=== PATIENT | female | born 1985 | race Caucasian/White ===

== ENCOUNTER 2018-07-30 17:20 | Inpatient (IN) | payer BC ==
[~2018-07-30] VITALS: Ht 154.9 cm; Wt 70.7 kg
[~2018-07-30 17:20] MED LIST: NOCURR
[2018-07-30 19:28] LABS: BASOPHILS % (AUTO) 1.1 % (0.0-2.0); EOSINOPHILS % (AUTO) 2.4 % (1.0-6.0); LYMPHOCYTES # (AUTO) 0.4 K/uL (1.0-4.8); LYMPHOCYTES % (AUTO) 48.4 % (22.0-44.0); MEAN CORPUSCULAR HEMOGLOBIN 25.4 pg (26.0-34.0); MEAN CORPUSCULAR HGB CONC 33.7 G/dL (31.0-37.0); MEAN CORPUSCULAR VOLUME 75 fL (80-100); MONOCYTES # (AUTO) 0.1 K/uL (0.1-1.0); MONOCYTES % (AUTO) 10.2 % (2.0-9.0); NEUTROPHILS # (AUTO) 0.3 K/uL (1.8-7.7); NEUTROPHILS % (AUTO) 37.9 % (40.0-70.0); PLATELET COUNT (AUTO) 123 K/uL (150-450); RED BLOOD CELL COUNT(AUTO) 2.44 MIL/uL (4.00-5.20)
[2018-07-30 19:37] LABS: CREATININE 1.58 mg/dL (0.60-1.30); POTASSIUM 3.9 mmol/L (3.5-5.1)
[2018-07-30 19:43] LABS: ALBUMIN 1.2 g/dL (3.4-5.0); BILIRUBIN,TOTAL 0.1 mg/dL (0.1-1.0)
[2018-07-30 19:45] LABS: HEMATOCRIT 18.3 % (36-46); HEMOGLOBIN 6.2 g/dL (12.0-16.0)
[2018-07-30] MEDS ORDERED: TraMADol HCL 50 MG TABLET PO ONE (19:45)
[2018-07-30] MEDS ORDERED: CefTRIAXone 1 GM/DEXTROSE 50 ML IV ONE (20:00)
[2018-07-30] MEDS ORDERED: SODIUM CHLORIDE 0.9% 1,000 ML IV ONE (20:00)
[2018-07-30 20:12] LABS: PLATELET MORPHOLOGY COMMENT LARGE PLTS PRESENT
[2018-07-30 21:39] LABS: ERYTHROCYTE SEDIMENTATION RATE 135 MM/HR (0-20)
[2018-07-30] MEDS ORDERED: SODIUM CHLORIDE 0.9% 250 ML IV ONE (21:59)
[2018-07-30] MEDS ORDERED: 0.9% SODIUM CHLORIDE 10 ML SYRINGE IVP PRN (22:15)
[2018-07-30] MEDS ORDERED: OxyCODONE HCL/ACETAMINOPHEN 5-325 MG TABLET PO PRN (22:15)
[2018-07-30] MEDS ORDERED: ACETAMINOPHEN 325 MG TABLET PO PRN ×2 (22:15→23:45)
[2018-07-30] MEDS ORDERED: ONDANSETRON HCL 4 MG/2 ML VIAL IVP PRN ×2 (22:15→23:45)
[2018-07-30 22:20] VITALS: BP 130/93
[2018-07-30] MEDS ORDERED: ACETAMINOPHEN 325 MG TABLET PO ONE (22:30)
[2018-07-30 22:35] VITALS: BP 137/95
[2018-07-30 22:50] VITALS: BP 134/84
[2018-07-30 23:00] VITALS: BP 140/95
[2018-07-30 23:30] VITALS: BP 131/90
[2018-07-30 23:35] VITALS: BP 140/95
[2018-07-30] MEDS ORDERED: MAGNESIUM SULFATE 4 GM/WATER 100 ML IV PRN (23:45)
[2018-07-30] MEDS ORDERED: MAGNESIUM OXIDE 400 MG TABLET PO PRN (23:45)
[2018-07-30] MEDS ORDERED: BISACODYL 10 MG RECTAL RECTAL SUPPOSITORY PR PRN (23:45)
[2018-07-30] MEDS ORDERED: ALBUTEROL SULFATE 2.5 MG/0.5 ML NEB SOLUTION NEB PRN (23:45)
[2018-07-30] MEDS ORDERED: IPRATROPIUM BROMIDE 0.5 MG/2.5 ML NEB SOLUTION NEB PRN (23:45)
[2018-07-30] MEDS ORDERED: MAGNESIUM SULFATE 2 GM/WATER 50 ML IV PRN (23:45)
[2018-07-30] MEDS ORDERED: MORPHINE SULFATE 2 MG/ML SYRINGE IVP PRN (23:45)
[2018-07-30] MEDS ORDERED: POTASSIUM CHLORIDE 20 MEQ ER TABLET PO PRN (23:45)
[2018-07-30] MEDS ORDERED: ZOLPIDEM TARTRATE 5 MG TABLET PO PRN (23:45)
[2018-07-30] MEDS ORDERED: POTASSIUM CHL 10 MEQ/WATER 50 ML IV PRN (23:45)
[2018-07-30] MEDS ORDERED: MAGNESIUM HYDROXIDE SUSPENSION 30 ML UDCUP PO PRN (23:45)
[2018-07-31] VITALS (14 sets, daily range): BP systolic 128–149; BP diastolic 84–111
[2018-07-31] MEDS ORDERED: VANCOMYCIN HCL 1.25 GM in DEXTROSE 5%-WATER 250 ML IV ONE ×2
[2018-07-31] MEDS: MethylPREDNISolone SOD SUCC 125 MG/2 ML VIAL IVP SCH ×5 (00:50→20:59)
[2018-07-31] MEDS ORDERED: SODIUM CHLORIDE 0.9% 250 ML IV ONE (00:57)
[2018-07-31] MEDS ORDERED: PNEUMOCOCCAL VACCINE POLYVALENT 0.5 ML VIAL [PPSV23] IM ONE (02:30)
[2018-07-31 06:00] LABS: % IRON SATURATION 8.3 % (22-44)
[2018-07-31 06:03] LABS: ALBUMIN 1.1 g/dL (3.4-5.0); BILIRUBIN,TOTAL 0.2 mg/dL (0.1-1.0); CALCIUM, TOTAL 6.9 mg/dL (8.8-10.5); CREATININE 1.73 mg/dL (0.60-1.30); MAGNESIUM 2.2 mg/dL (1.80-2.40); PHOSPHORUS 4.9 mg/dL (2.5-4.9); POTASSIUM 4.3 mmol/L (3.5-5.1); TOTAL PROTEIN, SERUM 5.1 g/dL (6.4-8.2)
[2018-07-31 06:11] LABS: HEMATOCRIT 25.2 % (36-46); HEMOGLOBIN 8.2 g/dL (12.0-16.0); MEAN CORPUSCULAR HGB CONC 32.7 G/dL (31.0-37.0); MEAN CORPUSCULAR VOLUME 80 fL (80-100); PLATELET COUNT (AUTO) 141 K/uL (150-450); RED BLOOD CELL COUNT(AUTO) 3.17 MIL/uL (4.00-5.20); RED CELL DISTRIBUTION WIDTH 15.9 % (11.5-14.5)
[2018-07-31 06:55] LABS: BAND NEUTROPHILS % (MANUAL) 0 % (0-5)
[2018-07-31] MEDS ORDERED: VANCOMYCIN HCL 1 GM/D5% WATER 200 ML IV SCH (07:00)
[2018-07-31 07:29] LABS: LYMPHOCYTES % (MANUAL) 33 % (22-44); MONOCYTES % (MANUAL) 6 % (2-9); SEGMENTED NEUTROPHILS % 61 % (40-70)
[2018-07-31 07:30] LABS: BUFFY COAT SMEAR PREP YES (NOT DONE)
[2018-07-31] MEDS ORDERED: VANCOMYCIN HCL 750 MG in DEXTROSE 5%-WATER 250 ML IV SCH (08:00)
[2018-07-31] MEDS ORDERED: BENZOCAINE/MENTHOL LOZENGE PO PRN (09:00)
[2018-07-31] MEDS: FAMOTIDINE 20 MG TABLET PO SCH (10:00)
[2018-07-31] MEDS: OxyCODONE HCL/ACETAMINOPHEN 5-325 MG TABLET PO PRN (10:55)
[2018-07-31] MEDS: VANCOMYCIN HCL 500 MG in DEXTROSE 5%-WATER 100 ML IV SCH ×2 (10:56→20:58)
[2018-07-31] MEDS: PROMETHAZINE HCL/CODEINE 6.25-10MG/5ML SYRUP UDCUP PO PRN (15:50)
[2018-08-01] VITALS (7 sets, daily range): BP systolic 128–150; BP diastolic 85–108
[2018-08-01] MEDS: OxyCODONE HCL/ACETAMINOPHEN 5-325 MG TABLET PO PRN ×3 (00:03→17:12)
[2018-08-01] MEDS: PROMETHAZINE HCL/CODEINE 6.25-10MG/5ML SYRUP UDCUP PO PRN (05:11)
[2018-08-01 06:49] LABS: CALCIUM, TOTAL 7.4 mg/dL (8.8-10.5); CREATININE 2.71 mg/dL (0.60-1.30); POTASSIUM 5.3 mmol/L (3.5-5.1); VANCOMYCIN,RANDOM 31.2 mcg/mL (25.0-50.0)
[2018-08-01] MEDS: VANCOMYCIN HCL 500 MG in DEXTROSE 5%-WATER 100 ML IV SCH (08:14)
[2018-08-01] MEDS: MethylPREDNISolone SOD SUCC 125 MG/2 ML VIAL IVP SCH ×4 (08:15→20:58)
[2018-08-01] MEDS: FAMOTIDINE 20 MG TABLET PO SCH (08:15)
[2018-08-01] MEDS ORDERED: VANCOMYCIN HCL 1 GM/D5% WATER 200 ML IV PRN (08:30)
[2018-08-01 15:37] LABS: BASOPHILS % (AUTO) 0.4 % (0.0-2.0); EOSINOPHILS % (AUTO) 0.3 % (1.0-6.0); HEMATOCRIT 33.3 % (36-46); HEMOGLOBIN 10.7 g/dL (12.0-16.0); LYMPHOCYTES # (AUTO) 0.2 K/uL (1.0-4.8); LYMPHOCYTES % (AUTO) 17.9 % (22.0-44.0); MEAN CORPUSCULAR HEMOGLOBIN 25.5 pg (26.0-34.0); MEAN CORPUSCULAR HGB CONC 32.1 G/dL (31.0-37.0); MEAN CORPUSCULAR VOLUME 79 fL (80-100); MONOCYTES # (AUTO) 0.1 K/uL (0.1-1.0); MONOCYTES % (AUTO) 10.4 % (2.0-9.0); NEUTROPHILS # (AUTO) 0.9 K/uL (1.8-7.7); PLATELET COUNT (AUTO) 207 K/uL (150-450); RED CELL DISTRIBUTION WIDTH 16.2 % (11.5-14.5)
[2018-08-01 15:46] LABS: CALCIUM, TOTAL 7.4 mg/dL (8.8-10.5); CREATININE 3.28 mg/dL (0.60-1.30); POTASSIUM 5.4 mmol/L (3.5-5.1)
[2018-08-01 15:52] LABS: ALBUMIN 1.2 g/dL (3.4-5.0); BILIRUBIN,TOTAL 0.1 mg/dL (0.1-1.0); TOTAL PROTEIN, SERUM 4.9 g/dL (6.4-8.2)
[2018-08-01] MEDS: SODIUM BICARBONATE 150 MEQ in DEXTROSE 5%-WATER 1,000 ML IV SCH (19:44)
[2018-08-02] MEDS: OxyCODONE HCL/ACETAMINOPHEN 5-325 MG TABLET PO PRN (00:16)
[2018-08-02 04:00] VITALS: BP 156/107
[2018-08-02 05:08] LABS: APPEARANCE,URINE CLOUDY (CLEAR); BILIRUBIN,URINE NEGATIVE (NEGATIVE); GLUCOSE, URINE (UA) NEGATIVE (NEGATIVE); KETONES,URINE TRACE mg/dL (NEGATIVE); LEUKOCYTE ESTERASE ,URINE NEGATIVE (NEGATIVE); NITRATE,URINE NEGATIVE (NEGATIVE); OCCULT BLOOD,URINE LARGE (NEGATIVE); PROTEIN,URINE SEE CONFIRM (NEGATIVE); UROBILINOGEN,URINE 0.2 mg/dL (<=1.0)
[2018-08-02 05:10] LABS: BACTERIA,URINE Few /HPF (None Seen); SQUAMOUS EPITHELIAL CELL,UR Many /LPF (None Seen)
[2018-08-02 05:11] LABS: SULFOSALICYLIC ACID,URINE 2+ (Negative)
[2018-08-02 06:30] LABS: BASOPHILS % (AUTO) 0.4 % (0.0-2.0); EOSINOPHILS % (AUTO) 0.1 % (1.0-6.0); HEMATOCRIT 26.4 % (36-46); HEMOGLOBIN 8.8 g/dL (12.0-16.0); LYMPHOCYTES # (AUTO) 0.2 K/uL (1.0-4.8); LYMPHOCYTES % (AUTO) 15.6 % (22.0-44.0); MEAN CORPUSCULAR HEMOGLOBIN 25.8 pg (26.0-34.0); MEAN CORPUSCULAR HGB CONC 33.3 G/dL (31.0-37.0); MEAN CORPUSCULAR VOLUME 78 fL (80-100); MONOCYTES # (AUTO) 0.1 K/uL (0.1-1.0); MONOCYTES % (AUTO) 10.1 % (2.0-9.0); NEUTROPHILS # (AUTO) 0.9 K/uL (1.8-7.7); NEUTROPHILS % (AUTO) 73.8 % (40.0-70.0); PLATELET COUNT (AUTO) 172 K/uL (150-450); RED CELL DISTRIBUTION WIDTH 16.2 % (11.5-14.5)
[2018-08-02 06:40] LABS: INR 0.9 (0.9-1.1); PROTHROMBIN TIME 9.6 SEC (9.4-11.6)
[2018-08-02 06:53] LABS: CALCIUM, TOTAL 6.9 mg/dL (8.8-10.5); CREATININE 3.43 mg/dL (0.60-1.30); MAGNESIUM 2.4 mg/dL (1.80-2.40); PHOSPHORUS 8.2 mg/dL (2.5-4.9); POTASSIUM 5.3 mmol/L (3.5-5.1); VANCOMYCIN,RANDOM 28.7 mcg/mL (25.0-50.0)
[2018-08-02 07:15] VITALS: BP 137/103
[2018-08-02] MEDS: PANTOPRAZOLE SODIUM 40 MG/VIAL IVP SCH (10:12)
[2018-08-02] MEDS: SODIUM CHLORIDE 0.9% IV SCH (11:02)
[2018-08-02] MEDS: METHYLPREDNISOLONE SOD SUCC IV SCH (11:02)
[2018-08-02] MEDS ORDERED: SODIUM CHLORIDE 0.9% 500 ML IV ONE (11:03)
[2018-08-02 11:40] VITALS: BP 147/102
[2018-08-02] MEDS: SODIUM BICARBONATE 150 MEQ in DEXTROSE 5%-WATER 1,000 ML IV SCH (12:00)
[2018-08-02 15:15] VITALS: BP 139/108
[2018-08-02] MEDS: FAMOTIDINE 20 MG TABLET PO SCH (15:57)
[2018-08-02 19:33] VITALS: BP 138/104
[2018-08-02 23:43] VITALS: BP 131/94
[2018-08-03 04:07] VITALS: BP 140/100
[2018-08-03] MEDS: SODIUM BICARBONATE 150 MEQ in DEXTROSE 5%-WATER 1,000 ML IV SCH ×2 (05:46→22:05)
[2018-08-03 06:34] LABS: BASOPHILS % (AUTO) 0.5 % (0.0-2.0); EOSINOPHILS % (AUTO) 0 % (1.0-6.0); HEMATOCRIT 23.9 % (36-46); HEMOGLOBIN 8.1 g/dL (12.0-16.0); LYMPHOCYTES # (AUTO) 0.2 K/uL (1.0-4.8); LYMPHOCYTES % (AUTO) 11.2 % (22.0-44.0); MEAN CORPUSCULAR HEMOGLOBIN 26.5 pg (26.0-34.0); MEAN CORPUSCULAR VOLUME 78 fL (80-100); MONOCYTES # (AUTO) 0.1 K/uL (0.1-1.0); NEUTROPHILS # (AUTO) 1.4 K/uL (1.8-7.7); NEUTROPHILS % (AUTO) 82.3 % (40.0-70.0); PLATELET COUNT (AUTO) 159 K/uL (150-450); RED BLOOD CELL COUNT(AUTO) 3.07 MIL/uL (4.00-5.20); RED CELL DISTRIBUTION WIDTH 16.5 % (11.5-14.5)
[2018-08-03 06:49] LABS: CALCIUM, TOTAL 6.6 mg/dL (8.8-10.5); CREATININE 2.86 mg/dL (0.60-1.30); POTASSIUM 4.8 mmol/L (3.5-5.1)
[2018-08-03 07:10] VITALS: BP 151/103
[2018-08-03 07:14] LABS: MAGNESIUM 2.5 mg/dL (1.80-2.40); PHOSPHORUS 6.5 mg/dL (2.5-4.9)
[2018-08-03] MEDS: PANTOPRAZOLE SODIUM 40 MG/VIAL IVP SCH (08:38)
[2018-08-03] MEDS: FAMOTIDINE 20 MG TABLET PO SCH (08:38)
[2018-08-03] MEDS: AmLODIPine BESYLATE 5 MG TABLET PO SCH (08:38)
[2018-08-03] MEDS: SODIUM CHLORIDE 0.9% IV SCH (10:37)
[2018-08-03] MEDS: METHYLPREDNISOLONE SOD SUCC IV SCH (10:37)
[2018-08-03 11:28] VITALS: BP 150/96
[2018-08-03] MEDS: LABETALOL HCL 100 MG TABLET PO SCH ×2 (14:13→21:34)
[2018-08-03 15:48] VITALS: BP 148/94
[2018-08-03 23:30] VITALS: BP 156/92
[2018-08-04] VITALS (8 sets, daily range): BP systolic 145–199; BP diastolic 92–107
[2018-08-04] MEDS ORDERED: HydrALAZINE HCL 20 MG/ML VIAL IVP PRN (05:37)
[2018-08-04 06:34] LABS: BASOPHILS % (AUTO) 0.2 % (0.0-2.0); EOSINOPHILS % (AUTO) 0 % (1.0-6.0); HEMATOCRIT 23.1 % (36-46); HEMOGLOBIN 7.6 g/dL (12.0-16.0); LYMPHOCYTES # (AUTO) 0.1 K/uL (1.0-4.8); LYMPHOCYTES % (AUTO) 5.1 % (22.0-44.0); MEAN CORPUSCULAR HEMOGLOBIN 25.7 pg (26.0-34.0); MEAN CORPUSCULAR HGB CONC 32.7 G/dL (31.0-37.0); MEAN CORPUSCULAR VOLUME 79 fL (80-100); MONOCYTES # (AUTO) 0.1 K/uL (0.1-1.0); MONOCYTES % (AUTO) 6.9 % (2.0-9.0); NEUTROPHILS # (AUTO) 1.5 K/uL (1.8-7.7); PLATELET COUNT (AUTO) 136 K/uL (150-450); RED BLOOD CELL COUNT(AUTO) 2.94 MIL/uL (4.00-5.20); RED CELL DISTRIBUTION WIDTH 16.3 % (11.5-14.5)
[2018-08-04 06:49] LABS: NEUTROPHILS % (AUTO) 87.8 % (40.0-70.0)
[2018-08-04 06:53] LABS: CALCIUM, TOTAL 7.1 mg/dL (8.8-10.5); CREATININE 2.38 mg/dL (0.60-1.30); MAGNESIUM 2.2 mg/dL (1.80-2.40); PHOSPHORUS 4.8 mg/dL (2.5-4.9); POTASSIUM 3.7 mmol/L (3.5-5.1); VANCOMYCIN,RANDOM 16.3 mcg/mL (25.0-50.0)
[2018-08-04] MEDS ORDERED: VANCOMYCIN HCL 1 GM/D5% WATER 200 ML IV ONE (08:00)
[2018-08-04] MEDS: FAMOTIDINE 20 MG TABLET PO SCH (08:20)
[2018-08-04] MEDS: AmLODIPine BESYLATE 5 MG TABLET PO SCH ×2 (08:20→20:21)
[2018-08-04] MEDS: LABETALOL HCL 100 MG TABLET PO SCH ×2 (08:20→20:21)
[2018-08-04] MEDS: PANTOPRAZOLE SODIUM 40 MG/VIAL IVP SCH (08:21)
[2018-08-04] MEDS: SODIUM CHLORIDE 0.9% IV SCH (10:29)
[2018-08-04] MEDS: METHYLPREDNISOLONE SOD SUCC IV SCH (10:29)
[2018-08-04] MEDS: SODIUM BICARBONATE 150 MEQ in DEXTROSE 5%-WATER 1,000 ML IV SCH (18:03)
[2018-08-05 04:39] VITALS: BP 143/90
[2018-08-05 05:45] LABS: EOSINOPHILS % (AUTO) 0 % (1.0-6.0); HEMATOCRIT 21.8 % (36-46); HEMOGLOBIN 7.5 g/dL (12.0-16.0); LYMPHOCYTES # (AUTO) 0.1 K/uL (1.0-4.8); LYMPHOCYTES % (AUTO) 4.2 % (22.0-44.0); MEAN CORPUSCULAR HEMOGLOBIN 26.4 pg (26.0-34.0); MEAN CORPUSCULAR HGB CONC 34.4 G/dL (31.0-37.0); MEAN CORPUSCULAR VOLUME 77 fL (80-100); MONOCYTES # (AUTO) 0.1 K/uL (0.1-1.0); MONOCYTES % (AUTO) 5.3 % (2.0-9.0); NEUTROPHILS # (AUTO) 1.5 K/uL (1.8-7.7); PLATELET COUNT (AUTO) 128 K/uL (150-450); RED BLOOD CELL COUNT(AUTO) 2.84 MIL/uL (4.00-5.20); RED CELL DISTRIBUTION WIDTH 16.5 % (11.5-14.5)
[2018-08-05 06:05] LABS: NEUTROPHILS % (AUTO) 90.5 % (40.0-70.0)
[2018-08-05 06:42] LABS: CALCIUM, TOTAL 6.6 mg/dL (8.8-10.5); CREATININE 2.26 mg/dL (0.60-1.30); MAGNESIUM 2.2 mg/dL (1.80-2.40); PHOSPHORUS 4.7 mg/dL (2.5-4.9); POTASSIUM 3.6 mmol/L (3.5-5.1); VANCOMYCIN,RANDOM 22.5 mcg/mL (25.0-50.0)
[2018-08-05] MEDS: FAMOTIDINE 20 MG TABLET PO SCH (07:44)
[2018-08-05] MEDS: LABETALOL HCL 100 MG TABLET PO SCH ×2 (07:44→20:26)
[2018-08-05] MEDS: AmLODIPine BESYLATE 5 MG TABLET PO SCH ×2 (07:44→20:26)
[2018-08-05] MEDS: PANTOPRAZOLE SODIUM 40 MG/VIAL IVP SCH (07:45)
[2018-08-05] MEDS: VANCOMYCIN HCL 750 MG in DEXTROSE 5%-WATER 250 ML IV SCH (08:20)
[2018-08-05 08:30] VITALS: BP 149/106
[2018-08-05] MEDS ORDERED: FLUMAZENIL 0.1 MG/ML 5 ML VIAL IVP ONE (09:53)
[2018-08-05] MEDS ORDERED: MIDAZOLAM HCL 2 MG/2 ML VIAL ONE (09:53)
[2018-08-05] MEDS ORDERED: NALOXONE HCL 0.4 MG/ML VIAL ONE (09:53)
[2018-08-05] MEDS ORDERED: FentaNYL CITRATE-PF 100 MCG/2 ML VIAL ONE (09:53)
[2018-08-05] MEDS ORDERED: GELATIN SPONGE,ABSORBABLE 12-7 MM TP ONE (09:54)
[2018-08-05] MEDS ORDERED: LIDOCAINE/PF 1% 30 ML VIAL ONE (09:54)
[2018-08-05] MEDS ORDERED: MIDAZOLAM HCL 2 MG/2 ML VIAL IVP ONE (10:11)
[2018-08-05] MEDS ORDERED: FentaNYL CITRATE-PF 100 MCG/2 ML VIAL IVP ONE (10:12)
[2018-08-05 11:53] VITALS: BP 147/99
[2018-08-05] MEDS: PredniSONE 20 MG TABLET PO SCH (12:07)
[2018-08-05 16:09] VITALS: BP 144/85
[2018-08-05 20:07] VITALS: BP 140/93
[2018-08-05 23:37] VITALS: BP 144/90
[2018-08-06 05:48] VITALS: BP 148/94
[2018-08-06 05:53] LABS: BASOPHILS % (AUTO) 0.1 % (0.0-2.0); EOSINOPHILS % (AUTO) 0 % (1.0-6.0); HEMATOCRIT 22.4 % (36-46); HEMOGLOBIN 7.5 g/dL (12.0-16.0); LYMPHOCYTES # (AUTO) 0.1 K/uL (1.0-4.8); LYMPHOCYTES % (AUTO) 4.5 % (22.0-44.0); MEAN CORPUSCULAR HGB CONC 33.5 G/dL (31.0-37.0); MEAN CORPUSCULAR VOLUME 78 fL (80-100); MONOCYTES # (AUTO) 0.2 K/uL (0.1-1.0); MONOCYTES % (AUTO) 9.4 % (2.0-9.0); PLATELET COUNT (AUTO) 153 K/uL (150-450); RED BLOOD CELL COUNT(AUTO) 2.89 MIL/uL (4.00-5.20); RED CELL DISTRIBUTION WIDTH 16.3 % (11.5-14.5)
[2018-08-06 06:39] LABS: CALCIUM, TOTAL 7.5 mg/dL (8.8-10.5); CREATININE 2.14 mg/dL (0.60-1.30); MAGNESIUM 2.3 mg/dL (1.80-2.40); PHOSPHORUS 4.7 mg/dL (2.5-4.9); POTASSIUM 3.5 mmol/L (3.5-5.1)
[2018-08-06 08:28] VITALS: BP 146/98
[2018-08-06] MEDS: VANCOMYCIN HCL 750 MG in DEXTROSE 5%-WATER 250 ML IV SCH (08:32)
[2018-08-06] MEDS: PANTOPRAZOLE SODIUM 40 MG/VIAL IVP SCH (08:33)
[2018-08-06] MEDS: PredniSONE 20 MG TABLET PO SCH (08:33)
[2018-08-06] MEDS: FAMOTIDINE 20 MG TABLET PO SCH (08:33)
[2018-08-06] MEDS: AmLODIPine BESYLATE 5 MG TABLET PO SCH (08:34)
[2018-08-06] MEDS: LABETALOL HCL 100 MG TABLET PO SCH (08:36)
[2018-08-06] MEDS ORDERED: MYCOPHENOLATE MOFETIL 250 MG CAPSULE PO SCH (09:15)
[2018-08-06 11:26] VITALS: BP 137/95
[2018-08-06 15:37] VITALS: BP 140/52
[2018-08-06] MEDS ORDERED: AMLO-511 PO (16:43)
[2018-08-06] MEDS ORDERED: FAMO20 PO (16:44)
[2018-08-06] MEDS ORDERED: LABE100T8 PO (16:45)
[2018-08-06] MEDS ORDERED: MYCO250C7 PO (16:45)
[2018-08-06] MEDS ORDERED: PRED1 PO (16:47)
[2018-08-06] MEDS ORDERED: PRED20 PO (16:49)
== END 2018-08-06 17:09 | disposition home or self-care (01) | DRG 871 ==
LOC: EMS 17:21 → 5N 22:00 → 4E 07-31 09:04 → 5N 08-01 16:28
PROVIDERS: ADMIT Internal Medicine; ATTEND Internal Medicine
PROC: 30233N1 Transfusion of Nonautologous Red Blood Cells into Peripheral Vein, Percutaneous Approach (ICD-10-PCS; 2018-07-30)
PROC: 0TB03ZX Excision of Right Kidney, Percutaneous Approach, Diagnostic (ICD-10-PCS; principal; 2018-08-05)
DX: A41.9 Sepsis, unspecified organism (principal); E43 Unspecified severe protein-calorie malnutrition; N17.9 Acute kidney failure, unspecified; E87.1 Hypo-osmolality and hyponatremia; D61.818 Other pancytopenia; L03.90 Cellulitis, unspecified; E87.2 Acidosis; E83.51 Hypocalcemia; D64.9 Anemia, unspecified; G40.909 Epilepsy, unspecified, not intractable, without status epilepticus; E87.5 Hyperkalemia; M32.9 Systemic lupus erythematosus, unspecified; M32.14 Glomerular disease in systemic lupus erythematosus; Z91.19 Patient's noncompliance with other medical treatment and regimen; Z88.8 Allergy status to other drugs, medicaments and biological substances; Z88.1 Allergy status to other antibiotic agents; Z68.29 Body mass index [BMI] 29.0-29.9, adult; Z91.14 Patient's other noncompliance with medication regimen; Z79.899 Other long term (current) drug therapy; Z87.441 Personal history of nephrotic syndrome
CPT/HCPCS: 36430; 50200; 76770; 82607; 82728; 83036; 83540; 83550; 83605; 83615; 83735; 84100; 85009; 85045; 85651; 86160; 86162; 86850; 86900; 86901; 86920; 87040; 87086; 93306; 96365; C9113; G0378; J0360; J0696; J2250; J2310; J2930; J3010; J3370; J3490; J7040; J7050; J7060; J7517; P9016